=== PATIENT | male | born 1940 | race Caucasian/White ===

== ENCOUNTER 2021-11-23 20:19 | Inpatient (IN) | payer MEDICARE ==
[~2021-11-23] VITALS: Ht 172.7 cm; Wt 72.6 kg
--- NOTE | 2021-11-23 20:19 | NUR ---
Patient's daughter at bedside
--- NOTE | 2021-11-23 20:20 | NUR ---
Dr Mccracken in room. MSE in progress
[2021-11-23 21:33] LABS: ALANINE AMINOTRANSFERASE 23 U/L (16-63); ALKALINE PHOSPHATASE 80 U/L (50-136); ASPARTATE AMINOTRANSFERASE 15 U/L (15-37); BILIRUBIN,DIRECT 0.1 mg/dL (0.0-0.2); BILIRUBIN,TOTAL 0.3 mg/dL (0.2-1.0); CARBON DIOXIDE 28 mmol/L (21-32); CHLORIDE 106 mmol/L (98-107); GLUCOSE 103 mg/dL (74-106); POTASSIUM 4.1 mmol/L (3.5-5.1); TOTAL PROTEIN, SERUM 6.9 g/dL (6.4-8.2); UREA NITROGEN, BLOOD 13 mg/dL (7-18)
[2021-11-23 21:41] LABS: HEMATOCRIT 38.3 % (36.7-47.1); MEAN CORPUSCULAR HEMOGLOBIN 28.5 uug (23.8-33.4); MEAN CORPUSCULAR VOLUME 84.7 fL (73.0-96.2); PLATELET COUNT (AUTO) 154 K/uL (152-348)
[2021-11-23 22:06] LABS: ABG BASE EXCESS -4.4 mmol/L; ABG HCO3 17.8 mmol/L; ABG PH 7.487 (7.350-7.450); ABG PO2 107.6 mmHg (75.0-100.0); ABG SITE RIGHT RADIAL; COHb 0.3 % (0.5-1.5); MetHb 0.3 % (0.0-1.5); O2Hb 97.6 % (94.0-97.0); VENT MODE Nasal Cannula
[2021-11-23] MEDS ORDERED: ATOR80TA PO (22:06)
[2021-11-23] MEDS ORDERED: [UNRECOGNIZED DRUG - OTHER] PO (22:06)
[2021-11-23] MEDS ORDERED: SERT100T PO (22:06)
[2021-11-23] MEDS ORDERED: TAMS-3 PO (22:06)
[2021-11-23] MEDS ORDERED: NITR100C11 PO (22:06)
[2021-11-23] MEDS ORDERED: MAGN400C PO (22:06)
[2021-11-23] MEDS ORDERED: PREG75CA PO (22:06)
[2021-11-23] MEDS ORDERED: CLOP75TA15 PO (22:06)
--- NOTE | 2021-11-23 22:16 | NUR ---
CALLED [facility] FOR PANEL CALL
[2021-11-23] MEDS ORDERED: ALBUTEROL SULFATE 8 GM HFA.AER.AD IH PRN (22:30)
[2021-11-23] MEDS ORDERED: ACETAMINOPHEN 325 MG TABLET PO PRN (22:30)
[2021-11-23] MEDS ORDERED: hydrALAZINE HCL 20 MG/1 ML VIAL IV PRN (22:30)
[2021-11-23] MEDS ORDERED: ONDANSETRON 4 MG/2 ML VIAL IV PRN (22:30)
[2021-11-23] MEDS ORDERED: MORPHINE SULFATE 2 MG/1 ML DISP.SYRIN IV PRN (22:30)
--- NOTE | 2021-11-23 22:30 | NUR ---
report givent to Ai COOMBS. Patient will be admitted to TELE room [address] Barragan
[2021-11-23 23:17] LABS: FERRITIN 113 ng/mL (26-388); LACTATE DEHYDROGENASE 116 U/L (85-227)
[2021-11-23] MEDS ORDERED: SCOPOLAMINE PATCH 1 MG/72 HRS PATCH TD ONE (23:20)
[2021-11-23] MEDS ORDERED: SCOPOLAMINE PATCH 1 MG/72 HRS PATCH TD SCH (23:30)
--- NOTE | 2021-11-23 23:39 | NUR ---
Pt. admitted to TELE room 316 , under care of Dr. Barragan Belongs List completed
--- NOTE | 2021-11-23 23:39 | NUR ---
Patient taken to room 316 by Ai COOMBS
--- NOTE | 2021-11-24 00:45 | NUR ---
Admitted patient to Tele/covid unit from ER. Awake and able to follow simple commands with expressive aphasia. Right sided weakness.On O2 at 2LPM via NC saturating at 94 %.No s/s of distress noted.IV patent and intact on left AC .NSR on tele.Incontinent. Pericare rendered.Skin clean and dry.No skin breakdown.Patient on isolation for covid.SAfety measures in place. Call light with in reach. Will continue to monitor.
[2021-11-24 04:50] VITALS: BP 103/60
[2021-11-24 07:10] LABS: HEMATOCRIT 36.4 % (36.7-47.1); MEAN CORPUSCULAR HEMOGLOBIN 28.6 uug (23.8-33.4); MEAN CORPUSCULAR VOLUME 84.2 fL (73.0-96.2); PLATELET COUNT (AUTO) 142 K/uL (152-348)
[2021-11-24 07:35] LABS: BILIRUBIN,TOTAL 0.3 mg/dL (0.2-1.0); CREATININE 1.1 mg/dL (0.6-1.3); PHOSPHOROUS 3.3 mg/dL (2.5-4.9); POTASSIUM 4.2 mmol/L (3.5-5.1); TOTAL PROTEIN, SERUM 6.7 g/dL (6.4-8.2)
[2021-11-24] MEDS ORDERED: SCOP1PAT13 TP (08:32)
[2021-11-24] MEDS ORDERED: TAMSULOSIN HCL 0.4 MG CAP.SR.24H PO SCH (09:00)
--- NOTE | 2021-11-24 09:00 | NUR ---
Awake, alert, aphasic. Titrated to room air with O2 sat of 93%. With bout of dry cough
[2021-11-24] MEDS: DOCUSATE SODIUM 100 MG CAPSULE PO SCH ×2 (09:39→17:02)
[2021-11-24] MEDS: MAGNESIUM OXIDE 400 MG TABLET PO SCH (09:40)
[2021-11-24] MEDS: SERTRALINE HCL 100 MG TABLET PO SCH (09:40)
[2021-11-24] MEDS: CLOPIDOGREL 75 MG TABLET PO SCH (09:40)
[2021-11-24] MEDS: BACLOFEN 10 MG TABLET PO SCH (09:40)
[2021-11-24] MEDS: HEPARIN SODIUM,PORCINE 5,000 UNITS/ML VIAL SQ SCH ×2 (09:41→20:17)
[2021-11-24] MEDS: FLUTICASONE/VILANTEROL 1 EACH BLST.W.DEV INH SCH (09:41)
[2021-11-24 11:00] VITALS: BP 97/58
--- NOTE | 2021-11-24 14:00 | NUR ---
Repositioned comfortably. Maintained room air with O2 sat of 93%
[2021-11-24 15:01] VITALS: BP 108/64
--- NOTE | 2021-11-24 18:47 | NUR ---
With fair appetite. Incontinence care done. Repositioned comfortably. Maintained on room air with O2 sat of 93%.
--- NOTE | 2021-11-24 19:45 | NUR ---
rounds made patient in bed awake , patient speak but incomprehensible sound,aphasic . noted patient with right sided upper and lower extremities paralysis but he left side upper and lower extremities moved.on room air no respiratory distress noted breathing even and unlabored .
--- NOTE | 2021-11-24 20:17 | NUR ---
schedule po medication given and tolerated with applesauce .
[2021-11-24 20:57] VITALS: BP 91/55
[2021-11-24] MEDS ORDERED: PREGABALIN 25 MG CAPSULE PO SCH (21:00)
[2021-11-24] MEDS ORDERED: ATORVASTATIN 40 MG TABLET PO SCH (21:00)
[2021-11-25 04:46] VITALS: BP 107/54
[2021-11-25 07:28] LABS: HEMATOCRIT 36.8 % (36.7-47.1); MEAN CORPUSCULAR HEMOGLOBIN 28.8 uug (23.8-33.4); MEAN CORPUSCULAR VOLUME 83.8 fL (73.0-96.2); PLATELET COUNT (AUTO) 139 K/uL (152-348)
[2021-11-25 08:06] LABS: CREATININE 1.1 mg/dL (0.6-1.3); MAGNESIUM 2.1 mg/dL (1.8-2.4); PHOSPHOROUS 3.3 mg/dL (2.5-4.9); POTASSIUM 3.9 mmol/L (3.5-5.1)
[2021-11-25] MEDS: BACLOFEN 10 MG TABLET PO SCH (08:54)
[2021-11-25] MEDS: DOCUSATE SODIUM 100 MG CAPSULE PO SCH (08:54)
[2021-11-25] MEDS: MAGNESIUM OXIDE 400 MG TABLET PO SCH (08:54)
[2021-11-25] MEDS: CLOPIDOGREL 75 MG TABLET PO SCH (08:54)
[2021-11-25] MEDS: SERTRALINE HCL 100 MG TABLET PO SCH (08:54)
[2021-11-25] MEDS: HEPARIN SODIUM,PORCINE 5,000 UNITS/ML VIAL SQ SCH (08:55)
[2021-11-25] MEDS: FLUTICASONE/VILANTEROL 1 EACH BLST.W.DEV INH SCH (08:57)
[2021-11-25 11:33] VITALS: BP 107/61
--- NOTE | 2021-11-25 13:37 | NUR ---
DCD instructions given to both pt. and his daughter Ms. Marlen Santos over the phone. Paxlovid returned and IV line dcd in preparation to dcd home. Patient AAOX4. vitals stable.
[2021-11-25 16:01] VITALS: BP 108/60
--- NOTE | 2021-11-25 16:07 | NUR ---
Patient wheel-down by nursing staff to be taken home by daughters who are waiting at the main building entrance. Patient assisted to wheel chair. AAOX3. No c/of pain. patient dressed with his own pants and Tshirt. dcd documents in a folder.
[2021-11-25] MEDS ORDERED: TAMSULOSIN HCL 0.4 MG CAP.SR.24H PO SCH (21:00)
== END 2021-11-25 16:30 | disposition home or self-care (01) | DRG 178 ==
LOC: ER 20:23 → TELE3 22:56 → MEDSURG3 11-24 09:00
PROVIDERS: ADMIT Internal Medicine; ATTEND Internal Medicine
DX: U07.1 COVID-19 (principal); I69.351 Hemiplegia and hemiparesis following cerebral infarction affecting right dominant side; R09.02 Hypoxemia; I69.320 Aphasia following cerebral infarction; D64.9 Anemia, unspecified; I10 Essential (primary) hypertension; N40.0 Benign prostatic hyperplasia without lower urinary tract symptoms; K11.7 Disturbances of salivary secretion
CPT/HCPCS: 36415; 36600; 71045; 83605; 83615; 83735; 84100; 84484; 85025; 86140; 87040; 87070; 87400; 93005; A4663; G0378; J1644; J3535; U0003